=== PATIENT | male | born 1990 | race Caucasian/White ===

== ENCOUNTER 2024-02-18 00:20 | Emergency (ER) | payer BC ==
[~2024-02-18] VITALS: Ht 185.4 cm; Wt 90.7 kg
[2024-02-18 00:27] VITALS: BP_SYST 159; PULSE 76; RESP 18; TEMP 97; O2SAT 97
[2024-02-18] MEDS: KETOROLAC TROMETHAMINE 60 MG/2 ML VIAL IM ONE (01:48)
[2024-02-18] MEDS: MORPHINE 4 MG INJ. 4 MG/ML VIAL IM ONE (03:06)
[2024-02-18] MEDS ORDERED: NAPR-1172 PO (03:29)
[2024-02-18 03:45] VITALS: BP_SYST 146; PULSE 79; RESP 18; TEMP 97; O2SAT 99
== END 2024-02-18 03:42 | disposition home or self-care (01) ==
LOC: SED 00:20
DX: S93.401A Sprain of unspecified ligament of right ankle, initial encounter (principal); S93.402A Sprain of unspecified ligament of left ankle, initial encounter; S93.601A Unspecified sprain of right foot, initial encounter; S93.602A Unspecified sprain of left foot, initial encounter; J45.909 Unspecified asthma, uncomplicated; Z88.8 Allergy status to other drugs, medicaments and biological substances; X58.XXXA Exposure to other specified factors, initial encounter; Y93.89 Activity, other specified; Y92.89 Other specified places as the place of occurrence of the external cause; Y99.8 Other external cause status
CPT/HCPCS: 73630; 73700; 99285; 96372; J1885; J2270